=== PATIENT | male | born 1975 | race American Indian/Alaskan Native ===

== ENCOUNTER 2016-12-06 14:22 | Emergency (ER) | payer SELFPAY ==
[2016-12-06] MEDS ORDERED: MOTRIN PO ONE (17:36)
[2016-12-06] MEDS ORDERED: NACL 0.9% 1000 ML 1,000 ML IV ONE (17:36)
[2016-12-06 18:09] VITALS: BP 155/82
[2016-12-06 18:10] LABS: Basophils % (Auto) 0.2 % (0.0-1.8); Hematocrit 39.8 % (35.5-45.6); Hemoglobin 13.6 gm/dl (11.8-15.2); Mean Corpuscular HGB Conc 34 % (32-34); Mean Corpuscular Hemoglobin 31 pg (28-32); Mean Corpuscular Volume 89 fl (84-94); Platelet Count 138 K/mm3 (140-440); Red Blood Count 4.46 M/mm3 (3.65-5.03); Red Cell Distribution Width 13.7 % (13.2-15.2); White Blood Count 9.8 K/mm3 (4.5-11.0)
[2016-12-06 18:13] LABS: Anion Gap 20 mmol/L; Blood Urea Nitrogen 10 mg/dL (9-20); Carbon Dioxide 28 mmol/L (22-30); Chloride 92.3 mmol/L (98-107); Glucose 188 mg/dL (75-100); Potassium 3.3 mmol/L (3.6-5.0); Sodium 137 mmol/L (137-145)
[2016-12-06] MEDS ORDERED: K-DUR PO ONE (18:17)
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
== END 2016-12-06 18:42 | disposition home or self-care (01) ==
LOC: ED 14:22
DX: E87.6 Hypokalemia (principal); J06.9 Acute upper respiratory infection, unspecified; F17.200 Nicotine dependence, unspecified, uncomplicated
CPT/HCPCS: 36415; 80048; 85025; 99283; J7030

== ENCOUNTER 2021-03-10 14:07 | Emergency (ER) | payer SELFPAY ==
[2021-03-10 14:48] VITALS: BP 135/79
--- NOTE | 2021-03-10 14:48 | Event Note ---
ED Screening Note ED Screening Note: fatigue co he has covid because his is in hosp with covid This initial assessment/diagnostic orders/clinical plan/treatment(s) is/are subject to change based on patients health status, clinical progression and re- assessment by fellow clinical providers in the ED. Further treatment and workup at subsequent clinical providers discretion. Patient/guardian urged not to elope from the ED as their condition may be serious if not clinically assessed and managed. Initial orders include: xr
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
--- NOTE | 2021-03-10 16:08 | XRay Report ---
CHEST 2 VIEWS INDICATION / CLINICAL INFORMATION: Shortness of breath. COMPARISON: None available. FINDINGS: SUPPORT DEVICES: None. HEART / MEDIASTINUM: No significant abnormality. LUNGS / PLEURA: No significant pulmonary or pleural abnormality. No pneumothorax. ADDITIONAL FINDINGS: No significant additional findings. IMPRESSION: 1. No acute findings. Signer Name: Nilo Sullivan MD Signed: 03/10/2021 4:04 PM Workstation Name: [id number]
== END 2021-03-10 15:40 | disposition home or self-care (01) ==
LOC: ED 14:07
DX: Z20.822 Contact with and (suspected) exposure to COVID-19 (principal); I10 Essential (primary) hypertension; F17.200 Nicotine dependence, unspecified, uncomplicated; Z79.899 Other long term (current) drug therapy; Z98.890 Other specified postprocedural states
CPT/HCPCS: 71046